=== PATIENT | male | born 1990 | race Caucasian/White ===

== ENCOUNTER 2019-11-21 09:02 | Outpatient (CLI) | payer OTHER ==
[~2019-11-21] VITALS: Ht 177.8 cm; Wt 70.3 kg
[2019-11-21] MEDS ORDERED: MULTIVITAMINS1 EAC2 ORAL (09:21)
[2019-11-21 09:22] VITALS: BP 130/76
--- NOTE | 2019-11-21 12:15 | Consultation ---
DATE OF CONSULTATION: 11/21/2019 CONSULTING PHYSICIAN: Liam Thornton M.D. CHIEF COMPLAINT: Rectal bleeding. HISTORY OF PRESENT ILLNESS: The patient is a 29-year-old male with diarrhea, rectal bleeding, chronic GERD, who was referred to us by primary care physician for evaluation of endoscopy and colonoscopy. PAST MEDICAL HISTORY: GERD. PAST SURGICAL HISTORY: Appendectomy. MEDICATIONS: Multivitamin. FAMILY HISTORY: No family history of GI malignancies. Mother had breast cancer. SOCIAL HISTORY: The patient drinks alcohol occasionally. Tobacco, smokes about 10 to 15 cigarettes per day. ALLERGIES: No known allergies. REVIEW OF SYSTEMS: Positive for GERD, diarrhea, rectal bleeding. PHYSICAL EXAMINATION: VITAL SIGNS: Temperature 98.6, blood pressure 130/76, pulse 84, respirations 20. HEENT: Normocephalic and atraumatic. Sclerae anicteric. NECK: Supple. No evidence of obvious lymphadenopathy. CARDIOVASCULAR: Regular rate and rhythm. Plus S1-S2. LUNGS: Decreased breath sounds bilaterally based on the supine exam. ABDOMEN: Soft, nontender. No rebound. No guarding. No peritoneal sign. EXTREMITIES: No cyanosis. No clubbing. No edema. ASSESSMENT AND PLAN: This is a 29-year-old male with GERD, rectal bleeding, diarrhea, suspicious for inflammatory bowel disease. Plan for endoscopy and colonoscopy as soon as authorization is obtained. Liam Thornton M.D. DR: ROSA JOB#: [id number] CC:
== END 2019-11-21 11:02 | disposition home or self-care (01) ==
LOC: PAN 09:02
DX: K62.5 Hemorrhage of anus and rectum (principal); K21.9 Gastro-esophageal reflux disease without esophagitis; Z90.89 Acquired absence of other organs; R19.7 Diarrhea, unspecified
CPT/HCPCS: G0463

== ENCOUNTER → 2020-07-25 | Outpatient (CLI) | payer OTHER ==
[~2020-07-25] MED LIST: MULTIVITAMINS1 EAC2 ORAL
[2020-07-25 14:06] VITALS: BP 141/95
--- NOTE | 2020-07-30 08:13 | General Progress Note ---
Subjective ROS Limited/Unobtainable: Yes Allergies: Coded Allergies: No Known Allergies (Unverified , 11/21/19) Objective General Appearance: alert EENT: PERRL/EOMI Neck: supple Cardiovascular: normal rate Respiratory/Chest: lungs clear Abdomen: normal bowel sounds, non tender, soft Extremities: non-tender Assessment/Plan Assessment/Plan: s/p EGD and colonoscopy HP neg gastrtis normal TI no CD hemorrhoids Liam Thornton MD Jul 30, 2020 08:13
== END | disposition home or self-care (01) ==
LOC: PAN 13:40
DX: K29.70 Gastritis, unspecified, without bleeding (principal); K64.9 Unspecified hemorrhoids
CPT/HCPCS: 99212